=== PATIENT | female | born 1945 | race Caucasian/White ===

== ENCOUNTER 2017-10-29 23:45 | Emergency (ER) | payer MEDICARE ==
[2017-10-30] MEDS ORDERED: NORMAL SALINE 1000 ML 1,000 ML IV ONE ×2 (00:19→05:09)
[2017-10-30] MEDS ORDERED: FENTANYL CITRATE INJ/PF 100 MCG/2 ML AMPUL IV ONE (00:19)
--- NOTE | 2017-10-30 00:21 | ER Document Report ---
ED GI/ - General Chief Complaint: Abdominal Pain Stated Complaint: ABDOMINAL PAIN Time Seen by Provider: 10/30/17 00:06 TRAVEL OUTSIDE OF THE [place] IN LAST 30 DAYS: No - HPI Patient complains to provider of: Abdominal pain, Other - Ms. esquivel is a 72-year- old female presents for evaluation of abdominal pain and decreased ostomy output over the last 2 days which is progressed into unbearable cramping pain. She notes fevers as well at home to approximately 102, has had episodes of emesis as well. She notes that her stools been very hard and she was evaluated by her surgeon earlier in the week who noted that she should increase her water intake. She has not had anything make it better, eating seems to make it worse. Cannot tolerate anything by mouth at this time. Has never had anything like this in the past - Related Data Allergies/Adverse Reactions: Penicillins Allergy (Verified 07/08/13 20:06) prednisone [Prednisone] Allergy (Verified 07/08/13 20:06) Sulfa (Sulfonamide Antibiotics) Allergy (Verified 07/08/13 20:06) Past Medical History - General Information source: Patient - Social History Smoking Status: Never Smoker Chew tobacco use (# tins/day): No Frequency of alcohol use: None Drug Abuse: None Family History: Reviewed & Not Pertinent Patient has suicidal ideation: No Patient has homicidal ideation: No - Medical History Medical History: Other - 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 Denies: Hx Pancreatitis Psychiatric Medical History: Denies: Hx Depression Past Surgical History: Reports: Hx Orthopedic Surgery - bilateral cataract, Hx Tubal Ligation - Immunizations Hx Diphtheria, Pertussis, Tetanus Vaccination: Yes Hx Pneumococcal Vaccination: 12/24/09 Review of Systems - Review of Systems -: Yes All other systems reviewed and negative Physical Exam - Vital signs Interpretation: Tachycardic - General General appearance: Anxious In distress: Moderate - HEENT Head: Normocephalic Eyes: Normal Conjunctiva: Normal - Respiratory Respiratory status: No respiratory distress Chest status: Nontender Breath sounds: Normal Chest palpation: Normal - Cardiovascular Rhythm: Regular, Tachycardia Murmur: No - Abdominal Inspection: Other - Colostomy in the left lower quadrant with hard stool at the stoma, pink appearing stoma, modestly rounded remarkable tenderness throughout with rebound Distension: Distended Bowel sounds: Absent - Back Back: Normal - Extremities General upper extremity: Normal inspection General lower extremity: Normal inspection - Neurological Neuro grossly intact: Yes - Psychological Associated symptoms: Normal affect Course - Re-evaluation Re-evalutation: 10/30/17 04:23 This 72-year-old female with a history of an ostomy as a result of bowel ischemia presents for evaluation of radha pain and decreased ostomy output. She has got very hard stool at the stoma, has had minimal ostomy output over the last several hours. She may have constipation potentially also has developed a bowel obstruction. She has not had similar symptoms in the past and is remarkably uncomfortable on evaluation, will plan for administration of narcotic medications and reassessment after labs and imaging. Labs demonstrated slight thrombocytopenia without any obvious left shift lactate of 2. We will plan for obtaining CT of the abdomen and pelvis with IV and oral contrast, patient with difficulty tolerating oral contrast as a result we will proceed with contrasted study. CT of the abdomen and pelvis demonstrates a loculated abscess 6 cm x 4 cm in the pelvis. We will initiate antibiotics draw blood cultures and plan for transfer to [facility] as patient has previously had her surgical interventions there. We will administer IV fluids pain control and plan for n.p.o. status. Discussed case with Dr. Rivas pain surgeon at [facility], he agrees to transfer at this time. We will plan for transfer reassessment while waiting emergency department administration of Cipro Flagyl for antibiosis. 10/30/17 05:18 10/30/17 05:35 - Laboratory Result Diagrams: 10/30/17 00:30 10/30/17 01:14 Laboratory results interpreted by me: 10/30/17 10/30/17 10/30/17 00:30 01:14 03:13 Plt Count 122 L Glucose 116 H Direct Bilirubin 0.6 H AST 79 H ALT 54 H Lipase 16.4 L Urine Protein 100 H Discharge - Discharge Referrals: ROLANDO GUTIERREZ MD [Primary Care Provider] - Follow up as needed
[2017-10-30] MEDS ORDERED: HYDROMORPHONE HCL INJ/PF 2 MG/ML AMPULE IV ONE ×2 (00:22→05:07)
[2017-10-30 00:51] LABS: ABSOLUTE LYMPHOCYTES (AUTO) 0.9 10^3/uL (0.5-4.7); ABSOLUTE MONOCYTES (AUTO) 0.2 10^3/uL (0.1-1.4); ABSOLUTE NEUT (AUTO) 3.8 10^3/uL (1.7-8.2); BASOPHILS % (AUTO) 0.3 % (0-2); EOSINOPHILS % (AUTO) 0.4 % (0-6); HEMATOCRIT 41.1 % (36.0-47.0); HEMOGLOBIN 13.6 g/dL (12.0-15.5); LYMPHOCYTES % (AUTO) 18.2 % (13-45); MEAN CORPUSCULAR HEMOGLOBIN 30.5 pg (27.0-33.4); MEAN CORPUSCULAR HGB CONC 33.1 g/dL (32.0-36.0); MEAN CORPUSCULAR VOLUME 92 fl (80-97); MONOCYTES % (AUTO) 3.4 % (3-13); RED BLOOD COUNT 4.47 10^6/uL (3.72-5.28); RED CELL DISTRIBUTION WIDTH 12.8 % (11.5-14.0); SEGMENTED NEUTROPHILS % (AUTO) 77.7 % (42-78); TOTAL CELLS COUNTED % (AUTO) 100 %; WHITE BLOOD COUNT 4.9 10^3/uL (4.0-10.5)
[2017-10-30 01:32] LABS: PLATELET COUNT 122 10^3/uL (150-450)
[2017-10-30 01:34] LABS: ALANINE AMINOTRANSFERASE 54 U/L (9-52); ALBUMIN 4.1 g/dL (3.5-5.0); ALKALINE PHOSPHATASE 117 U/L (38-126); ANION GAP 14 (5-19); ASPARTATE AMINO TRANSFERASE 79 U/L (14-36); BILIRUBIN,DIRECT 0.6 mg/dL (0.0-0.4); BILIRUBIN,TOTAL 1.2 mg/dL (0.2-1.3); BLOOD UREA NITROGEN 11 mg/dL (7-20); CALCIUM 9.1 mg/dL (8.4-10.2); CARBON DIOXIDE 24 mmol/L (22-30); CHLORIDE 103 mmol/L (98-107); GLUCOSE 116 mg/dL (75-110); LIPASE 16.4 U/L (23-300); POTASSIUM 4.6 mmol/L (3.6-5.0); SODIUM 140.8 mmol/L (137-145)
[2017-10-30] MEDS ORDERED: ONDANSETRON HCL INJ/PF 4 MG/2 ML SDV IV ONE (02:16)
[2017-10-30 04:16] LABS: APPEARANCE,URINE SLIGHTLY-CLOUDY; BILIRUBIN,URINE NEGATIVE (NEGATIVE); COLOR,URINE AMBER; GLUCOSE, URINE NEGATIVE (NEGATIVE); KETONES,URINE NEGATIVE (NEGATIVE); LEUKOCYTE ESTERASE,URINE NEGATIVE (NEGATIVE); NITRITE,URINE NEGATIVE (NEGATIVE); PROTEIN,URINE 100 mg/dL (NEGATIVE); URINE SPECIFIC GRAVITY 1.021; UROBILINOGEN,URINE NEGATIVE mg/dL (<2.0)
--- NOTE | 2017-10-30 04:55 | RADIOLOGY REPORT (SQ) ---
EXAM DESCRIPTION: CT ABDOMEN PELVIS WITH IV CONTRAST COMPLETED DATE/TME: 10/30/2017 03:01 CLINICAL HISTORY: 72 years Female, abdominal pain. CREAT 0.78 Comparison: None. Technique: IV contrast. Coronal and sagittal reformat. This exam was performed according to our departmental dose-optimization program, which includes automated exposure control, adjustment of the mA and/or kV according to patient size and/or use of iterative reconstruction technique. [facility]: Dose Right [facility]: CareDose [facility]: Dose Right [facility]: Teradose 4D [facility]: Packback LIMITATIONS: None Findings: 8.2 x 4.5 x 2.7 cm irregular well defined encapsulated fluid collection the right paracentral pelvis probably indicates an abscess or complicated seroma. Moderate effusions. Suture material mid abdominal bowel. Atherosclerosis. Fluid-filled sigmoid colon with moderate diffuse bowel wall thickening. Sternotomy, mild lumbar dextroconvexity, coronary arterial calcification stenting, small bilateral pleural effusions, bowel ostomy site of the left paracentral abdomen. Liver,, gallbladder, pancreas, spleen, adrenals, renal system, pelvic organs, lymphatics, vasculature, and musculoskeleton appear otherwise unremarkable. IMPRESSION: 8.2 cm abscess or complicated seroma of the right paracentral pelvis. Moderate ascites. Moderate sigmoiditis.
[2017-10-30] MEDS ORDERED: CIPROFLOXACIN 400 MG/D5W RTU 400 MG/200 ML RTUPB IV ONE (05:16)
[2017-10-30] MEDS ORDERED: METRONIDAZOLE 500 MG/NS RTU 500 MG/100 ML RTUPB IV ONE (05:17)
--- NOTE | 2017-10-30 08:15 | ER Document Report ---
Doctor's Note Notes: 10/30/17 08:15 Patient was seen and evaluated prior to transfer. Blood pressure is slightly low. Ordering a bolus but at this time patient does look well and remained stable for transfer.
--- NOTE | 2017-10-30 08:30 | ER Document Report ---
Doctor's Note Notes: 10/30/17 08:28 Asked to reevaluate patient prior to transfer again. Currently patient is hypotensive. Blood pressure is 85/50. The transport that is here for her is a basic life support unit. I am starting some IV fluids. Patient has not had her second round of IV antibiotics yet either. I have done an evaluation and assessment on her. Do not feel comfortable stating that she is stable for transport yet based on this hypotension. This may be medication related or she could potentially be septic. I am asking for a ALS unit at this time to make sure the patient is transferred to receiving hospital appropriately. 10/30/17 09:42 Patient remained stable at this time. Blood pressure back up. IV restarted. Bolus given. Repeat doses of antibiotics given. Transport is here. Stable for transport.
[2017-10-30 10:18] VITALS: BP 115/50
== END 2017-10-30 09:50 | disposition short-term general hospital (02) ==
LOC: ER 23:45
DX: R50.9 Fever, unspecified (principal); I95.9 Hypotension, unspecified; R10.9 Unspecified abdominal pain; R11.10 Vomiting, unspecified; I10 Essential (primary) hypertension; E78.00 Pure hypercholesterolemia, unspecified; Z88.2 Allergy status to sulfonamides; Z88.0 Allergy status to penicillin; Z93.3 Colostomy status; Z98.51 Tubal ligation status
CPT/HCPCS: 96376; 99285; 96361; 96375; 96365; 36415; 87040; 83690; 85025; 80053; 81001; 83605; 74177; J1170; J2405; J7030; J0744

== ENCOUNTER 2019-02-18 15:23 | Emergency (ER) | payer MEDICARE ==
--- NOTE | 2019-02-18 15:43 | ER Document Report ---
ED Medical Screen (RME) - General Chief Complaint: Leg Pain Stated Complaint: RIGHT LEG PAIN/TINGLING Time Seen by Provider: 02/18/19 15:37 Primary Care Provider: ROLANDO GUTIERREZ MD [Primary Care Provider] - Follow up as needed Information source: Patient Notes: Patient presents complaining of right calf pain for the past 4 days. Patient denies any trauma. Patient states that she did see her primary doctor who advised her to come here for evaluation for possible DVT. Patient is currently taking Xarelto. Patient denies any chest pain or shortness of breath. Patient denies any previous history of DVT. I have greeted and performed a rapid initial assessment of this patient. A comprehensive ED assessment and evaluation of the patient, analysis of test results and completion of the medical decision making process will be conducted by additional ED providers. TRAVEL OUTSIDE OF THE [place] IN LAST 30 DAYS: No - Related Data Allergies/Adverse Reactions: Penicillins Allergy (Verified 07/08/13 20:06) prednisone [Prednisone] Allergy (Verified 07/08/13 20:06) Sulfa (Sulfonamide Antibiotics) Allergy (Verified 07/08/13 20:06) Past Medical History - Past Medical History Cardiac Medical History: Reports: Hx Atrial Fibrillation - with cardiac ablation, Hx Hypercholesterolemia, Hx Hypertension Pulmonary Medical History: Denies: Hx Tuberculosis Renal/ Medical History: Denies: Hx Peritoneal Dialysis GI Medical History: Reports: Hx Gastroesophageal Reflux Disease. Denies: Hx Pancreatitis Psychiatric Medical History: Denies: Hx Depression Past Surgical History: Reports: Hx Orthopedic Surgery - bilateral cataract, Hx Tubal Ligation - Immunizations Hx Diphtheria, Pertussis, Tetanus Vaccination: Yes Physical Exam - Vital signs Vitals: Temp Pulse Resp BP Pulse Ox 97.8 F 73 16 184/63 H 97 02/18/19 15:36 02/18/19 15:36 02/18/19 15:36 02/18/19 15:36 02/18/19 15:36 - Extremities General lower extremity: Tender - Right calf tenderness, Normal ROM, Normal strength Course - Vital Signs Vital signs: Temp Pulse Resp BP Pulse Ox 97.8 F 73 16 184/63 H 97 02/18/19 15:36 02/18/19 15:36 02/18/19 15:36 02/18/19 15:36 02/18/19 15:36 Doctor's Discharge - Discharge Referrals: ROLANDO GUTIERREZ MD [Primary Care Provider] - Follow up as needed
[2019-02-18 16:33] LABS: ABSOLUTE EOSINOPHILS # (AUTO) 0.3 10^3/uL (0.0-0.6); ABSOLUTE LYMPHOCYTES (AUTO) 2.4 10^3/uL (0.5-4.7); ABSOLUTE MONOCYTES (AUTO) 0.9 10^3/uL (0.1-1.4); ABSOLUTE NEUT (AUTO) 4.8 10^3/uL (1.7-8.2); BASOPHILS % (AUTO) 0.5 % (0-2); EOSINOPHILS % (AUTO) 3.4 % (0-6); HEMATOCRIT 34.9 % (36.0-47.0); HEMOGLOBIN 12.2 g/dL (12.0-15.5); LYMPHOCYTES % (AUTO) 28.4 % (13-45); MEAN CORPUSCULAR HGB CONC 34.9 g/dL (32.0-36.0); MEAN CORPUSCULAR VOLUME 92 fl (80-97); MONOCYTES % (AUTO) 10.9 % (3-13); PLATELET COUNT 279 10^3/uL (150-450); RED BLOOD COUNT 3.81 10^6/uL (3.72-5.28); SEGMENTED NEUTROPHILS % (AUTO) 56.8 % (42-78); TOTAL CELLS COUNTED % (AUTO) 100 %; WHITE BLOOD COUNT 8.4 10^3/uL (4.0-10.5)
[2019-02-18 16:57] LABS: ANION GAP 10 (5-19); BLOOD UREA NITROGEN 19 mg/dL (7-20); CALCIUM 9.7 mg/dL (8.4-10.2); CARBON DIOXIDE 25 mmol/L (22-30); CHLORIDE 104 mmol/L (98-107); GLUCOSE 95 mg/dL (75-110); POTASSIUM 4.2 mmol/L (3.6-5.0)
[2019-02-18 19:09] VITALS: BP 173/70
--- NOTE | 2019-02-18 20:20 | ER Document Report ---
HPI - HPI Time Seen by Provider: 02/18/19 15:37 Pain Level: 1 Notes: Patient is a 73-year-old female presenting to the emergency department per the recommendation of her primary care provider requesting a venous Doppler to rule out DVT to the right lower extremity. Patient is already on anticoagulant therapy. She denies any history of DVT or PE. She reports pain to the posterior right lower extremity in the calf area although she reports that she has been having increased activity and exercise over the past 1 to 2 weeks. She is not a smoker and has had no recent travel. - REPRODUCTIVE Reproductive: DENIES: : Past Medical History - General Information source: Patient - Social History Smoking Status: Former Smoker Chew tobacco use (# tins/day): No Frequency of alcohol use: None Drug Abuse: None Family History: Reviewed & Not Pertinent Patient has suicidal ideation: No Patient has homicidal ideation: No - Past Medical History Cardiac Medical History: Reports: Hx Atrial Fibrillation - with cardiac ablation, Hx Hypercholesterolemia, Hx Hypertension Pulmonary Medical History: Denies: Hx Tuberculosis Renal/ Medical History: Denies: Hx Peritoneal Dialysis GI Medical History: Reports: Hx Gastroesophageal Reflux Disease. Denies: Hx P ancreatitis Psychiatric Medical History: Denies: Hx Depression Past Surgical History: Reports: Hx Orthopedic Surgery - bilateral cataract, Hx Tubal Ligation - Immunizations Hx Diphtheria, Pertussis, Tetanus Vaccination: Yes Hx Pneumococcal Vaccination: 12/24/09 Vertical Provider Document - CONSTITUTIONAL Notes: PHYSICAL EXAMINATION: GENERAL: Well-appearing, well-nourished and in no acute distress. HEAD: Atraumatic, normocephalic. EYES: Pupils equal round extraocular movements intact, conjunctiva are normal. ENT: Nares patent NECK: Normal range of motion LUNGS: No respiratory distress Musculoskeletal: Normal range of motion NEUROLOGICAL: Normal speech, normal gait. PSYCH: Normal mood, normal affect. SKIN: Mild swelling noted to right lower extremity without erythema. Strong dorsalis pedis pulse. - INFECTION CONTROL TRAVEL OUTSIDE OF THE [place] IN LAST 30 DAYS: No Course - Re-evaluation Re-evalutation: Venous Doppler was negative for any acute SVT or DVT. Patient will be discharged home at this time. Encouraged to repeat venous Doppler if patient continues to have unilateral leg swelling. Patient and spouse verbalized understanding and agreement with this plan. The patient's emergency department workup and current diagnosis were explained to the patient and or family. Follow-up instructions were provided. Medications if prescribed were discussed. Instructions for when to return to the emergency department including specific worrisome symptoms were discussed with the patient and/or family. - Vital Signs Vital signs: Temp Pulse Resp BP Pulse Ox 98.0 F 71 15 173/70 H 98 02/18/19 19:07 02/18/19 19:07 02/18/19 19:07 02/18/19 19:07 02/18/19 19:07 - Laboratory Result Diagrams: 02/18/19 16:00 02/18/19 16:00 Laboratory results interpreted by me: 02/18/19 02/18/19 16:00 16:00 Hct 34.9 L Est GFR (MDRD) Non-Af 57 L Discharge - Discharge Clinical Impression: Right leg pain, Right leg paresthesias Condition: Stable Disposition: HOME, SELF-CARE Additional Instructions: Your blood work and the venous Doppler study today were normal. At this time there is no evidence of a blood clot or deep vein thrombosis. If you continue to have pain please try taking some Tylenol, ice and/or elevate to the extremity. I believe the pain may be coming from you recently starting to be active again. If the pain does not improve please have a repeat venous Doppler ultrasound done in 10 days. Your primary care provider can order this as an outpatient or you can come to the emergency department. Referrals: ROLANDO GUTIERREZ MD [Primary Care Provider] - Follow up as needed
--- NOTE | 2019-02-18 20:44 | RADIOLOGY REPORT (SQ) ---
US LOWER EXTREMITY VEINS EXAM DATE: 02/18/2019 3:42 PM CRITICAL POWER TECHNICIAN HISTORY: Leg pain and swelling. COMPARISON: None. TECHNIQUE: Grayscale, color Doppler, and spectral Doppler images of the right lower extremity were performed. FINDINGS: The common femoral, superficial femoral and popliteal veins are patent and compressible. Normal augmentation and color Doppler blood flow in the aforementioned veins. The visualized calf veins are also patent. IMPRESSION: No evidence of deep or superficial venous thrombosis in the right lower extremity.
== END 2019-02-18 20:25 | disposition home or self-care (01) ==
LOC: ER 15:23
DX: M79.661 Pain in right lower leg (principal); R20.2 Paresthesia of skin; I48.91 Unspecified atrial fibrillation; Z79.01 Long term (current) use of anticoagulants; E78.00 Pure hypercholesterolemia, unspecified; I10 Essential (primary) hypertension; Z98.51 Tubal ligation status
CPT/HCPCS: 36415; 80048; 85025; 93971; 99284